=== PATIENT | female | born 1995 | race Caucasian/White ===

== ENCOUNTER 2019-03-14 01:37 | Emergency (ER) | payer BC ==
[2019-03-14] MEDS ORDERED: Acetaminophen 500 MG TAB ONE (02:40)
== END 2019-03-14 04:06 | disposition home or self-care (01) ==
LOC: ERS 01:37
DX: S92.002A Unspecified fracture of left calcaneus, initial encounter for closed fracture (principal); F17.210 Nicotine dependence, cigarettes, uncomplicated; V87.8XXA Person injured in other specified noncollision transport accidents involving motor vehicle (traffic), initial encounter
CPT/HCPCS: 99283

== ENCOUNTER 2020-06-14 09:58 | Outpatient (CLI) | payer OTHER | END 2020-06-14 09:59 | disposition home or self-care (01) | LOC: BICULT 09:58 | PROVIDERS: ATTEND Family Medicine | DX: Z34.82 Encounter for supervision of other normal pregnancy, second trimester (principal); Z3A.20 20 weeks gestation of pregnancy | CPT/HCPCS: 76805 ==